=== PATIENT | female | born 1950 | race Caucasian/White ===

== ENCOUNTER → 2017-03-29 | Outpatient (REF) | payer MEDICARE, BC, OTHER ==
[~2017-03-29] MED LIST: BIOT50004 PO; LUTE25CA PO; MELO15TA4 PO; MULT1CHW39 PO; NATU400T PO; OLME5TAB PO; SIMV20TA2 PO; VALA1TAB PO; VESI5TAB PO; VITA20008 PO; [UNRECOGNIZED DRUG - CODE] IV; [UNRECOGNIZED DRUG - CODE] XX
[2017-03-29 12:48] LABS: PERCENT SATURATION 85.3 % (13.2-37.4)
== END ==
LOC: M LAB REF 12:00
PROVIDERS: ATTEND Internal Medicine Medical Oncology
DX: E83.110 Hereditary hemochromatosis (principal)

== ENCOUNTER → 2017-04-06 | Outpatient (CLI) | payer MEDICARE, BC, OTHER ==
[~2017-04-06] VITALS: Ht 160 cm; Wt 90.7 kg
[~2017-04-06] MED LIST changes: +LIDOCAINE 2% INJ 100 MG/5 ML SDV (FOR ANES.) As Ordered ONE; +NS 1,000 ML IV ONE; +PROPOFOL 200 MG/20 ML VIAL As Ordered ONE
--- NOTE | 2017-04-06 11:19 | ROOR ---
Patient Name: Sharonda Muhammad Procedure Date: 04/06/2017 11:01 AM Date of : 1950 Age: 66 Room: [facility] Gender: Female Note Status: Finalized Procedure: Colonoscopy to Cecum Indications: Screening for colorectal malignant neoplasm, Last colonoscopy: 2006 Providers: Morris Murcia MD Referring MD: KEYSHA COLON MD Requesting Provider: Medicines: Monitored Anesthesia Care Complications: No immediate complications. Procedure: Pre-Anesthesia Assessment: - The heart rate, respiratory rate, oxygen saturations, blood pressure, adequacy of pulmonary ventilation, and response to care were monitored throughout the procedure. The Colonoscope was introduced through the anus and advanced to the cecum, identified by appendiceal orifice and ileocecal valve. The colonoscopy was performed without difficulty. The patient tolerated the procedure well. The quality of the bowel preparation was excellent. Findings: The perianal and digital rectal examinations were normal. Non-bleeding internal hemorrhoids were found during retroflexion. The hemorrhoids were small and Grade I (internal hemorrhoids that do not prolapse). Multiple small and large-mouthed diverticula were found in the recto-sigmoid colon, sigmoid colon and descending colon. The exam was otherwise without abnormality on direct and retroflexion views. Impression: - Non-bleeding internal hemorrhoids. - Diverticulosis in the recto-sigmoid colon, in the sigmoid colon and in the descending colon. - The examination was otherwise normal on direct and retroflexion views. - No specimens collected. - The exam was otherwise normal to the cecum. Recommendation: - Patient has a contact number available for emergencies. The signs and symptoms of potential delayed complications were discussed with the patient. Return to normal activities tomorrow. Written discharge instructions were provided to the patient. - High fiber diet. - Discharge patient to home. - Continue present medications. - Repeat colonoscopy in 10 years for screening purposes. - Return to referring physician. - The findings and recommendations were discussed with the patient's family. Morris Murcia MD Morris Murcia MD 04/06/2017 11:18:51 AM This report has been signed electronically. Number of Addenda: 0 Note Initiated On: 04/06/2017 11:01 AM Estimated Blood Loss: Estimated blood loss: none.
[2017-04-06 11:41] VITALS: BP 183/93
== END ==
LOC: M OPP 09:49
PROVIDERS: ATTEND Internal Medicine Gastroenterology
DX: Z12.11 Encounter for screening for malignant neoplasm of colon (principal); Z80.0 Family history of malignant neoplasm of digestive organs; K64.0 First degree hemorrhoids; K57.30 Diverticulosis of large intestine without perforation or abscess without bleeding; R94.5 Abnormal results of liver function studies; E83.110 Hereditary hemochromatosis; Z96.652 Presence of left artificial knee joint; K59.00 Constipation, unspecified; I10 Essential (primary) hypertension; E78.00 Pure hypercholesterolemia, unspecified; Z79.899 Other long term (current) drug therapy; Z88.8 Allergy status to other drugs, medicaments and biological substances

== ENCOUNTER → 2017-04-20 | Outpatient (REF) | payer MEDICARE, BC, OTHER ==
[~2017-04-20] MED LIST changes: -LIDOCAINE 2% INJ 100 MG/5 ML SDV (FOR ANES.) As Ordered ONE; -NS 1,000 ML IV ONE; -PROPOFOL 200 MG/20 ML VIAL As Ordered ONE
[2017-04-20 12:57] LABS: PERCENT SATURATION 86.4 % (13.2-37.4)
== END ==
LOC: M LAB REF 12:22
PROVIDERS: ATTEND Internal Medicine Medical Oncology
DX: E83.110 Hereditary hemochromatosis (principal)

== ENCOUNTER → 2017-06-27 | Outpatient (REF) | payer MEDICARE, BC, OTHER ==
[~2017-06-27] MED LIST changes: -VALA1TAB PO; +VALA1TAB2 PO; -VESI5TAB PO; +VESI5TAB2 PO
== END ==
LOC: M LAB REF 17:39
PROVIDERS: ATTEND Internal Medicine Medical Oncology
DX: E83.110 Hereditary hemochromatosis (principal)

== ENCOUNTER → 2017-08-22 | Outpatient (REF) | payer MEDICARE, BC, OTHER | LOC: M LAB REF 16:30 | PROVIDERS: ATTEND Internal Medicine Medical Oncology | DX: E83.110 Hereditary hemochromatosis (principal) ==

== ENCOUNTER → 2017-10-14 | Outpatient (REF) | payer MEDICARE, BC, OTHER ==
[2017-10-14 13:39] LABS: PERCENT SATURATION 64.7 % (13.2-45.0)
== END ==
LOC: M LAB REF 13:03
PROVIDERS: ATTEND Internal Medicine Medical Oncology
DX: E83.110 Hereditary hemochromatosis (principal)

== ENCOUNTER → 2017-12-08 | Outpatient (REF) | payer MEDICARE, BC, OTHER ==
[2017-12-08 20:44] LABS: FERRITIN 67 NG/ML (8-252); IRON (FE) 112 UG/DL (50-170); PERCENT SATURATION 42.1 % (13.2-45.0); TOTAL IRON BINDING CAPACITY 266 UG/DL (250-450)
== END ==
LOC: M LAB REF 18:14
DX: E83.110 Hereditary hemochromatosis (principal)
CPT/HCPCS: 83550

== ENCOUNTER → 2018-01-06 | Outpatient (CLI) | payer MEDICARE, BC, OTHER | LOC: M CARPUL 08:22 | DX: E83.119 Hemochromatosis, unspecified (principal) | CPT/HCPCS: 93306 ==

== ENCOUNTER → 2018-01-18 | Outpatient (CLI) | payer MEDICARE, BC, OTHER | LOC: M SLEEP HO 10:50 | DX: R40.0 Somnolence (principal) | CPT/HCPCS: G0399 ==

== ENCOUNTER → 2018-01-30 | Outpatient (REF) | payer MEDICARE, BC, OTHER ==
[2018-01-30 14:34] LABS: FERRITIN 49 NG/ML (8-252); IRON (FE) 119 UG/DL (50-170); TOTAL IRON BINDING CAPACITY 238 UG/DL (250-450)
== END ==
LOC: M LAB REF 13:38
DX: E83.110 Hereditary hemochromatosis (principal)
CPT/HCPCS: 83550

== ENCOUNTER → 2018-03-03 | Outpatient (REF) | payer MEDICARE, BC, OTHER | LOC: M LAB REF 13:37 | DX: D34 Benign neoplasm of thyroid gland (principal); E04.2 Nontoxic multinodular goiter; E83.110 Hereditary hemochromatosis | CPT/HCPCS: 83550 ==

== ENCOUNTER → 2018-03-03 | Outpatient (REF) | payer MEDICARE, BC, OTHER ==
[2018-03-03 14:19] LABS: FERRITIN 55 NG/ML (8-252); IRON (FE) 129 UG/DL (50-170); PERCENT SATURATION 49.4 % (13.2-45.0); TOTAL IRON BINDING CAPACITY 261 UG/DL (250-450)
== END ==
LOC: M LAB REF 13:08
DX: E83.110 Hereditary hemochromatosis (principal)

== ENCOUNTER → 2018-06-07 | Outpatient (REF) | payer MEDICARE, BC, OTHER ==
[2018-06-07 14:18] LABS: FERRITIN 33 NG/ML (8-252); IRON (FE) 118 UG/DL (50-170); PERCENT SATURATION 43.5 % (13.2-45.0); TOTAL IRON BINDING CAPACITY 271 UG/DL (250-450)
== END ==
LOC: M LAB REF 13:47
DX: D50.9 Iron deficiency anemia, unspecified (principal)
CPT/HCPCS: 83550

== ENCOUNTER → 2019-12-28 | Outpatient (REF) | payer MEDICARE, BC, OTHER ==
[~2019-12-28] MED LIST changes: +BUPR1TAB53 PO; +CIDA500T2 PO; +GABA-843 PO; +MELO15TA28 PO; -MELO15TA4 PO; -MULT1CHW39 PO; +MULT200T7 PO; +PANT40TA3 PO; -SIMV20TA2 PO; +SIMV20TA22 PO; -VALA1TAB2 PO; +VALA1TAB5 PO
== END ==
LOC: M LAB REF 13:38
PROVIDERS: ATTEND Dermatology
DX: D04.39 Carcinoma in situ of skin of other parts of face (principal)
CPT/HCPCS: 11102; 88305; G0463

== ENCOUNTER → 2020-02-18 | Outpatient (CLI) | payer MEDICARE, BC, OTHER ==
[~2020-02-18] MED LIST changes: +AMIT10TA PO; +HYDR25TAB PO; +ISOVUE-370 76% 100ML VIAL (Q9967) As Ordered ONE; +VALA500T5 PO
--- NOTE | 2020-02-18 09:38 | REP ---
Clinical: Followup lung nodule. Technique: Axial contrast enhanced images from the thoracic inlet to the upper abdomen with coronal and sagittal re-formations using 75 ml Isovue 370 intravenous contrast material. Comparison: 06/09/2019, 06/26/2018. Findings: The bilateral lung pretty are relatively well aerated and scattered stable noncalcified pulmonary nodules are again identified and unchanged including two right-sided nodules measuring up to approximately 8 mm (images 36, 48). No consolidation. No effusion. No pneumothorax. Tracheobronchial tree is patent. Mediastinum demonstrates stable atherosclerotic changes. No aortic aneurysm or dissection. No cardiomegaly or pericardial effusion. No axillary, hilar, or mediastinal adenopathy. Heterogeneous enlarged left thyroid gland unchanged. Skeletal structures are intact. Limited upper abdomen demonstrates fatty infiltration of the liver. Impression: 1. Stable noncalcified pulmonary nodules. 2. No acute mediastinal or pleuroparenchymal process. Electronically Signed by Aldair Negrete MD 02/18/2020 09:29 A
--- NOTE | 2020-02-18 09:40 | REP ---
Clinical: History of hemochromatosis and hepatosteatosis. Technique: Real time vega scale ultrasound examination using curved array transducer. Findings: The liver is diffusely increased echogenicity and consistent with the given history of hepatosteatosis and/or hepatocellular disease. No hepatomegaly or focal hepatic lesion identified. The spleen is upper limits of normal in size and measures 10.6 x 9.9 x 4.9 cm without focal splenic lesion identified. Pancreas is normal. The gallbladder is unremarkable and without gallstones, wall thickening, or pericholecystic fluid. No biliary ductal dilatation is appreciated and the common bile duct measures 6 mm diameter. The bilateral kidneys are normal in reniform shape without hydronephrosis. Right kidney measures 10.1 x 4.4 x 4.2 cm. Left kidney measures 10.9 x 4.7 x 5.3 cm. Abdominal aorta is normal and measures 1.9 cm maximal diameter. No ascites. Impression: 1. Findings consistent with hepatic steatosis and/or hepatocellular disease. No focal hepatic lesion identified. 2. Spleen is upper limits of normal in size without focal splenic lesion identified. Electronically Signed by Aldair Negrete MD 02/18/2020 09:32 A
== END ==
LOC: M RAD 08:26
PROVIDERS: ATTEND Internal Medicine Hematology & Oncology
DX: E83.110 Hereditary hemochromatosis (principal)
CPT/HCPCS: 71260; 76700; Q9967

== ENCOUNTER → 2020-03-19 | Outpatient (REF) | payer MEDICARE, BC, OTHER ==
[~2020-03-19] MED LIST changes: -ISOVUE-370 76% 100ML VIAL (Q9967) As Ordered ONE
== END ==
LOC: M LAB REF 09:26
PROVIDERS: ATTEND Dermatology
DX: L57.0 Actinic keratosis (principal)

== ENCOUNTER → 2020-07-07 | Outpatient (CLI) | payer MEDICARE, BC, OTHER ==
[~2020-07-07] MED LIST changes: +ISOVUE-370 76% 100ML VIAL As Ordered ONE; +PANT40TA29 PO; -PANT40TA3 PO; +SERT25TA85 PO
--- NOTE | 2020-08-21 10:23 | REP ---
RIGHT UPPER QUADRANT ULTRASOUND: HISTORY: High risk for liver cancer. FINDINGS: Real time sonographic evaluation of the right upper quadrant is performed. The study is somewhat limited due to patient body habitus and bowel gas. The gallbladder demonstrates no evidence of intraluminal sludge or calculi, wall thickening or pericholecystic fluid. There is no intrahepatic or extrahepatic biliary dilation, the common bile duct measuring 5 mm. The liver demonstrates diffuse hyperechoic texture heterogeneously , compatible with diffuse fibrofatty infiltration. No gross liver mass is seen. No gross pancreatic mass is seen. The right kidney demonstrates no hydronephrosis and normal size at 10.1 cm in length. IMPRESSION: Somewhat limited examination due to patient body habitus and bowel gas. There is diffuse fibrofatty infiltration of the liver. No gross liver mass is seen. MTDD
--- NOTE | 2020-08-21 10:24 | REP ---
CT STUDY CHEST WITH IV CONTRAST HISTORY: Hereditary hemochromatosis. Pulmonary nodules. COMPARISON: CT study 02/18/2020. CT CONTRAST DOSE: 75 mL of intravenous Isovue-[address] FINDINGS: There is a pleural-based 7-mm stable noncalcified pulmonary nodule in the right lower lobe adjacent to the minor fissure peripherally. This is unchanged from 02/18/2020 and by report, unchanged from earlier CT studies. There is also a pleural-based benign appearing 7-mm nodule in the right middle lobe adjacent to the minor fissure also unchanged from prior CT studies. No new pulmonary nodule is appreciated. No infiltrate or effusion is seen. There are accessory splenules in the left upper quadrant, which are unchanged as well. There is fatty infiltration of the liver with area of fat-sparing near the gallbladder. No adrenal lesion is seen. No hepatic mass lesion is observed. There is left coronary artery vascular calcification. No hilar or mediastinal mass or adenopathy is observed. There is heterogeneous enlargement of the left lobe of the thyroid gland unchanged from the 02/18/2020 study. IMPRESSION: Stable pulmonary nodules. Left thyroid goiter. Fatty infiltration of the liver. Left coronary artery MTDD
== END ==
LOC: M RAD 08:00
PROVIDERS: ATTEND Internal Medicine Hematology & Oncology
DX: E83.119 Hemochromatosis, unspecified (principal); R91.8 Other nonspecific abnormal finding of lung field; K76.0 Fatty (change of) liver, not elsewhere classified
CPT/HCPCS: 71260; 76705; Q9967

== ENCOUNTER → 2020-07-23 | Outpatient (REF) | payer MEDICARE, BC, OTHER ==
[~2020-07-23] MED LIST changes: -ISOVUE-370 76% 100ML VIAL As Ordered ONE
== END ==
LOC: M LAB REF 17:58
PROVIDERS: ATTEND Physician Assistant Medical
DX: R30.0 Dysuria (principal)

== ENCOUNTER → 2020-09-26 | Outpatient (CLI) | payer MEDICARE, BC, OTHER | LOC: M LABSMTC 12:42 | PROVIDERS: ATTEND Pediatrics | DX: Z20.828 Contact with and (suspected) exposure to other viral communicable diseases (principal) | CPT/HCPCS: C9803; U0003 ==

== ENCOUNTER → 2020-11-11 | Outpatient (CLI) | payer MEDICARE, BC, OTHER ==
[2020-11-11 06:58] LABS: BASO % 0.6 % (0.0-1.0); EOS # 0.2 10^3/uL (0.0-0.5); EOS % 2.4 % (0.0-3.0); HEMATOCRIT 40.7 % (36.0-47.0); HEMOGLOBIN 13.2 g/dl (12.0-15.5); LYMPH % 32.3 % (24.0-44.0); MEAN CORPUSCULAR HEMOGLOBIN 29.3 pg (27.0-33.0); MEAN CORPUSCULAR HGB CONC 32.4 g/dl (32.0-36.5); MEAN CORPUSCULAR VOLUME 90.4 fl (80.0-96.0); MONO # 0.6 10^3/uL (0.0-0.8); MONO % 9.7 % (0.0-5.0); NEUTROPHILS # 3.4 10^3/uL (1.5-8.5); NEUTROPHILS % 54.5 % (36.0-66.0); PLATELET COUNT, AUTOMATED 257 10^3/uL (150-450); WHITE BLOOD COUNT 6.3 10^3/uL (4.0-10.0)
[2020-11-11 07:22] LABS: ERYTHROCYTE SEDIMENTATION RATE 17 mm/hr (0-30)
[2020-11-11 07:31] LABS: ALBUMIN 3.7 GM/DL (3.2-5.2); ALT/SGPT 22 U/L (12-78); BILIRUBIN,DIRECT 0.1 MG/DL (0.0-0.2); BILIRUBIN,TOTAL 0.5 MG/DL (0.2-1.0); BLOOD UREA NITROGEN 16 MG/DL (7-18); C REACTIVE PROTEIN QUANTITATIV 0.57 MG/DL (0.00-0.30); CALCIUM LEVEL 8.9 MG/DL (8.8-10.2); CARBON DIOXIDE LEVEL 30 MEQ/L (21-32); CHLORIDE LEVEL 104 MEQ/L (98-107); CREATININE FOR GFR 0.93 MG/DL (0.55-1.30); FREE T4 0.96 NG/DL (0.76-1.46); GLOMERULAR FILTRATION RATE > 60.0 (>39); GLUCOSE, FASTING 92 MG/DL (70-100); IRON (FE) 97 UG/DL (50-170); MAGNESIUM LEVEL 2.6 MG/DL (1.8-2.4); PERCENT SATURATION 34.6 % (13.2-45.0); RHEUMATOID FACTOR QUANT < 10.0 IU/ML (<15.0); SODIUM LEVEL 140 MEQ/L (136-145); TOTAL IRON BINDING CAPACITY 280 UG/DL (250-450); TOTAL PROTEIN 6.8 GM/DL (6.4-8.2)
[2020-11-11 07:35] LABS: HEMOGLOBIN A1c 5.5 %
[2020-11-11 09:39] LABS: TOTAL 25(OH) VITAMIN D 38.8 NG/ML (30.0-100.0)
[2020-11-11 09:40] LABS: CORTISOL AM 10.7 UG/DL (4.3-22.4); FOLATE > 24.0 NG/ML
[2020-11-11 11:46] LABS: VITAMIN B12 LEVEL 464 PG/ML
== END ==
LOC: M LAB 06:00
PROVIDERS: ATTEND Nurse Practitioner Family
DX: R53.83 Other fatigue (principal); Z79.899 Other long term (current) drug therapy

== ENCOUNTER → 2021-06-23 | Outpatient (REF) | payer MEDICARE, BC, OTHER ==
[~2021-06-23] MED LIST changes: -AMIT10TA PO; +AMIT10TA7 PO; +D31000TA2 PO; +DIMELIQ PO; +ESSETAB4 PO; +GABA-282 PO; -GABA-843 PO; +HYDR-3490 PO; -HYDR25TAB PO; +L-LY500T9 PO; +MILK500C PO
== END ==
LOC: M LAB REF 14:46
PROVIDERS: ATTEND Physician Assistant
DX: L82.1 Other seborrheic keratosis (principal)
CPT/HCPCS: 11102; 88305; G0463

== ENCOUNTER → 2021-06-30 | Outpatient (CLI) | payer MEDICARE, BC, OTHER ==
[~2021-06-30] MED LIST changes: +REME15TA2 PO
== END ==
LOC: M WHC 11:12
PROVIDERS: ATTEND Family Medicine
DX: M81.0 Age-related osteoporosis without current pathological fracture (principal)

== ENCOUNTER → 2021-11-24 | Outpatient (REF) | payer MEDICARE, BC, OTHER | LOC: M LAB REF 08:27 | PROVIDERS: ATTEND Physician Assistant | DX: D04.39 Carcinoma in situ of skin of other parts of face (principal) ==

== ENCOUNTER → 2022-01-27 | Outpatient (CLI) | payer MEDICARE, BC, OTHER ==
[~2022-01-27] MED LIST changes: -D31000TA2 PO; +L-LY500T23 PO; -L-LY500T9 PO; +VITA100093 PO
== END ==
LOC: M WHC 06:43
PROVIDERS: ATTEND Family Medicine
DX: Z12.31 Encounter for screening mammogram for malignant neoplasm of breast (principal)

== ENCOUNTER → 2022-04-29 | Outpatient (CLI) | payer MEDICARE, BC, OTHER | LOC: M WHC 07:09 | PROVIDERS: ATTEND Internal Medicine Medical Oncology | DX: E83.110 Hereditary hemochromatosis (principal) ==

== ENCOUNTER → 2023-01-24 | Outpatient (CLI) | payer MEDICARE, BC, OTHER ==
[~2023-01-24] MED LIST changes: -OLME5TAB PO; +OLME5TAB24 PO
== END ==
LOC: M PLAIMG 12:14
PROVIDERS: ATTEND Nurse Practitioner Family
DX: R05.1 Acute cough (principal)

== ENCOUNTER 2023-02-16 11:21 | Emergency (ER) | payer MEDICARE, BC, OTHER ==
[~2023-02-16] VITALS: Ht 157.5 cm; Wt 88.0 kg
[2023-02-16 12:25] LABS: BASO % 0.5 % (0.0-1.0); EOS # 0.2 10^3/uL (0.0-0.5); EOS % 3.2 % (0.0-3.0); HEMATOCRIT 40.8 % (36.0-47.0); HEMOGLOBIN 13.9 g/dl (12.0-15.5); LYMPH % 30.9 % (24.0-44.0); MEAN CORPUSCULAR HEMOGLOBIN 32.6 pg (27.0-33.0); MEAN CORPUSCULAR HGB CONC 34.1 g/dl (32.0-36.5); MEAN CORPUSCULAR VOLUME 95.8 fl (80.0-96.0); MONO # 0.6 10^3/uL (0.0-0.8); MONO % 9.2 % (2.0-8.0); NEUTROPHILS # 3.6 10^3/uL (1.5-8.5); NEUTROPHILS % 55.7 % (36.0-66.0); PLATELET COUNT, AUTOMATED 178 10^3/uL (150-450); RED BLOOD COUNT 4.26 10^6/uL (4.00-5.40); WHITE BLOOD COUNT 6.5 10^3/uL (4.0-10.0)
[2023-02-16 12:36] LABS: INR 0.95; PARTIAL THROMBOPLASTIN TIME 25.9 SECONDS (24.8-34.2); PROTHROMBIN TIME 12.9 SECONDS (12.5-14.5)
[2023-02-16 12:56] LABS: BLOOD UREA NITROGEN 17 MG/DL (9-23); CALCIUM LEVEL 9.2 MG/DL (8.3-10.6); CARBON DIOXIDE LEVEL 34 MMOL/L (20-31); CHLORIDE LEVEL 98 MMOL/L (98-107); CREATININE FOR GFR 0.78 MG/DL (0.55-1.30); GLOMERULAR FILTRATION RATE > 60.0 (>39); GLUCOSE, FASTING 83 MG/DL (74-106); POTASSIUM SERUM 3.7 MMOL/L (3.5-5.1); SODIUM LEVEL 138 MMOL/L (136-145)
[2023-02-16 13:09] LABS: RSV AMPLIFICATION NEGATIVE (NEGATIVE)
[2023-02-16 13:14] LABS: CK-MB VALUE MASS < 1.0 NG/ML (<3.6); LIPASE 59 U/L (12-53)
[2023-02-16 13:17] LABS: ALBUMIN 3.8 G/DL (3.2-5.2); ALKALINE PHOSPHATASE 75 U/L (46-116); ALT/SGPT 43 U/L (7.0-40); AST/SGOT 29 U/L (<34); BILIRUBIN,DIRECT 0.2 MG/DL (<0.4); BILIRUBIN,TOTAL 0.8 MG/DL (0.3-1.2); TOTAL PROTEIN 6.2 G/DL (5.7-8.2)
[2023-02-16 13:18] LABS: CPK CREATINE PHOSPHOKINASE 49 U/L (34-145); FREE T4 1.01 NG/DL (0.89-1.76); MB/CK RELATIVE INDEX 2.04 (< OR =4); THYROID STIMULATING HORMONE 0.955 uIU/ML (0.55-4.78)
[2023-02-16 13:49] LABS: CK-MB VALUE MASS < 1.0 NG/ML (<3.6)
[2023-02-16 13:51] LABS: CPK CREATINE PHOSPHOKINASE 49 U/L (34-145); MB/CK RELATIVE INDEX 2.04 (< OR =4)
[2023-02-16] MEDS ORDERED: ISOVUE-370 76% 100ML VIAL As Ordered ONE (14:37)
[2023-02-16 16:09] VITALS: BP 144/72
== END 2023-02-16 16:27 | disposition home or self-care (01) ==
LOC: M ED 11:21
DX: R07.9 Chest pain, unspecified (principal); I10 Essential (primary) hypertension; E04.1 Nontoxic single thyroid nodule; E78.5 Hyperlipidemia, unspecified; R51.9 Headache, unspecified; K21.9 Gastro-esophageal reflux disease without esophagitis; F32.A Depression, unspecified; Z88.8 Allergy status to other drugs, medicaments and biological substances; Z79.899 Other long term (current) drug therapy
CPT/HCPCS: 71045; 71275; 80047; 80048; 80076; 82550; 82553; 83690; 83880; 84439; 84443; 84484; 85025; 85610; 85730; 87631; 93005; 93041; 94760; 99285; Q9967

== ENCOUNTER → 2023-07-13 | Outpatient (CLI) | payer MEDICARE, BC, OTHER ==
[~2023-07-13] MED LIST changes: +ACET650T61 PO; +CIPR500T39 PO; +IBAN150T6 PO; +MELO7.5T35 PO; +METR-265 PO; +MIRT-84 PO; +MULT-90 PO; +ONE-TAB PO; -REME15TA2 PO; +[UNRECOGNIZED DRUG - OTHER] PO
== END ==
LOC: M WHC 07:41
PROVIDERS: ATTEND Family Medicine
DX: Z12.31 Encounter for screening mammogram for malignant neoplasm of breast (principal); Z13.820 Encounter for screening for osteoporosis; M85.852 Other specified disorders of bone density and structure, left thigh; M85.88 Other specified disorders of bone density and structure, other site

== ENCOUNTER 2023-07-29 17:30 | Emergency (ER) | payer MEDICARE, BC, OTHER ==
[~2023-07-29] VITALS: Ht 157.5 cm; Wt 85.9 kg
[~2023-07-29 17:30] MED LIST changes: -ACET650T61 PO; -CIPR500T39 PO; -IBAN150T6 PO; -MELO7.5T35 PO; -METR-265 PO; -MULT-90 PO; -ONE-TAB PO; -[UNRECOGNIZED DRUG - OTHER] PO
[2023-07-29 17:31] VITALS: BP 165/75; TEMP 99.4; O2SAT 96
[2023-07-29] MEDS ORDERED: MELO7.5T35 (18:01)
[2023-07-29] MEDS ORDERED: IBAN150T6 (18:01)
[2023-07-29 18:45] LABS: BASO % 0.2 % (0.0-1.0); EOS % 0.1 % (0.0-3.0); HEMOGLOBIN 13.1 g/dl (12.0-15.5); LYMPH # 1.3 10^3/uL (1.5-5.0); LYMPH % 7.8 % (24.0-44.0); MEAN CORPUSCULAR HEMOGLOBIN 32.6 pg (27.0-33.0); MEAN CORPUSCULAR HGB CONC 34.5 g/dl (32.0-36.5); MEAN CORPUSCULAR VOLUME 94.5 fl (80.0-96.0); MONO # 0.8 10^3/uL (0.0-0.8); MONO % 4.9 % (2.0-8.0); NEUTROPHILS # 14.6 10^3/uL (1.5-8.5); NEUTROPHILS % 85.9 % (36.0-66.0); PLATELET COUNT, AUTOMATED 236 10^3/uL (150-450); RED BLOOD COUNT 4.02 10^6/uL (4.00-5.40)
[2023-07-29 18:59] LABS: LIPASE 30 U/L (12-53)
[2023-07-29 19:01] LABS: ALBUMIN 3.3 G/DL (3.2-5.2); ALKALINE PHOSPHATASE 102 U/L (46-116); ALT/SGPT 25 U/L (7.0-40); AST/SGOT 20 U/L (<34); BILIRUBIN,DIRECT 0.6 MG/DL (<0.4); BILIRUBIN,TOTAL 1.6 MG/DL (0.3-1.2); BLOOD UREA NITROGEN 12 MG/DL (9-23); CALCIUM LEVEL 8.5 MG/DL (8.3-10.6); CARBON DIOXIDE LEVEL 28 MMOL/L (20-31); CHLORIDE LEVEL 99 MMOL/L (98-107); CREATININE FOR GFR 0.76 MG/DL (0.55-1.30); GLOMERULAR FILTRATION RATE > 60.0 (>39); GLUCOSE, FASTING 94 MG/DL (74-106); POTASSIUM SERUM 3.6 MMOL/L (3.5-5.1); SODIUM LEVEL 136 MMOL/L (136-145); TOTAL PROTEIN 6.5 G/DL (5.7-8.2)
== END 2023-07-29 21:41 | disposition left against medical advice (07) ==
LOC: M ED 17:30
DX: R10.9 Unspecified abdominal pain (principal); Z53.21 Procedure and treatment not carried out due to patient leaving prior to being seen by health care provider

== ENCOUNTER → 2023-08-02 | Outpatient (CLI) | payer MEDICARE, BC, OTHER ==
[~2023-08-02] MED LIST changes: +GASTROGRAFIN SOLUTION 30ML As Ordered ONE; +IBAN150T6; +ISOVUE-370 76% 100ML VIAL As Ordered ONE; +MELO7.5T35
== END ==
LOC: M RAD 12:26
PROVIDERS: ATTEND Registered Nurse
DX: R10.9 Unspecified abdominal pain (principal)
CPT/HCPCS: 74177; Q9963; Q9967

== ENCOUNTER 2023-08-09 12:57 | Inpatient (IN) | payer OTHER, MEDICARE, BC ==
[~2023-08-09] VITALS: Ht 157.5 cm; Wt 81.5 kg
[~2023-08-09 12:57] MED LIST changes: -GASTROGRAFIN SOLUTION 30ML As Ordered ONE; -IBAN150T6; +IBAN150T6 PO; -ISOVUE-370 76% 100ML VIAL As Ordered ONE; -MELO7.5T35; +MELO7.5T35 PO
[2023-08-09] MEDS ORDERED: METR-265 PO (13:29)
[2023-08-09] MEDS ORDERED: CIPR500T39 PO (13:29)
[2023-08-09] MEDS ORDERED: ONDANSETRON 4MG 2ML VIAL IV ONE (13:45)
[2023-08-09] MEDS ORDERED: NS 500 ML IV ONE (13:45)
[2023-08-09] MEDS ORDERED: MORPHINE 2 MG/ML 1ML VIAL IV ONE (14:15)
[2023-08-09] MEDS ORDERED: ACETAMINOPHEN 325 MG TAB PO ONE (14:15)
[2023-08-09] MEDS ORDERED: ISOVUE-370 76% 100ML VIAL As Ordered ONE (14:18)
[2023-08-09 14:23] LABS: BASO % 0.1 % (0.0-1.0); EOS % 0.1 % (0.0-3.0); HEMATOCRIT 37.4 % (36.0-47.0); HEMOGLOBIN 12.4 g/dl (12.0-15.5); LYMPH # 0.9 10^3/uL (1.5-5.0); LYMPH % 5.2 % (24.0-44.0); MEAN CORPUSCULAR HEMOGLOBIN 32.2 pg (27.0-33.0); MEAN CORPUSCULAR HGB CONC 33.2 g/dl (32.0-36.5); MEAN CORPUSCULAR VOLUME 97.1 fl (80.0-96.0); MONO # 1.2 10^3/uL (0.0-0.8); MONO % 6.9 % (2.0-8.0); NEUTROPHILS # 15.6 10^3/uL (1.5-8.5); NEUTROPHILS % 86.6 % (36.0-66.0); PLATELET COUNT, AUTOMATED 362 10^3/uL (150-450); RED BLOOD COUNT 3.85 10^6/uL (4.00-5.40)
[2023-08-09 14:49] LABS: ALBUMIN 2.8 G/DL (3.2-5.2); BILIRUBIN,DIRECT 0.2 MG/DL (<0.4); BILIRUBIN,TOTAL 0.6 MG/DL (0.3-1.2); TOTAL PROTEIN 6.3 G/DL (5.7-8.2)
[2023-08-09 14:58] LABS: RSV AMPLIFICATION NEGATIVE (NEGATIVE)
[2023-08-09] MEDS ORDERED: PIPERACILLIN/TAZOBACTAM SOD 3.375 GM in D5W MINI-BAG PLUS 50 ML IV ONE (15:05)
[2023-08-09] MEDS ORDERED: ONDANSETRON 4MG 2ML VIAL IV PRN (17:05)
[2023-08-09 17:36] VITALS: BP 135/71; TEMP 97; O2SAT 98
[2023-08-09] MEDS: LR 1,000 ML IV SCH (18:03)
[2023-08-09] MEDS ORDERED: MED REC IN PROGRESS XX SCH (19:10)
[2023-08-09] MEDS ORDERED: [UNRECOGNIZED DRUG - OTHER] PO (20:09)
[2023-08-09] MEDS ORDERED: ACET650T61 PO (20:12)
[2023-08-09] MEDS ORDERED: ONE-TAB PO (20:27)
[2023-08-09] MEDS ORDERED: MULT-90 PO (20:27)
[2023-08-09 20:52] VITALS: BP 129/72; TEMP 96.6; O2SAT 96
[2023-08-09 21:36] VITALS: BP 139/74
[2023-08-09] MEDS: PIPERACILLIN/TAZOBACTAM SOD 4.5 GM in D5W MINI-BAG PLUS 50 ML IV SCH (21:36)
[2023-08-09] MEDS ORDERED: HOME MED LIST COMPLETE! XX SCH (22:15)
[2023-08-09] MEDS: MORPHINE 4 MG/ML 1ML VIAL IV PRN (23:39)
[2023-08-10] MEDS: PIPERACILLIN/TAZOBACTAM SOD 4.5 GM in D5W MINI-BAG PLUS 50 ML IV SCH ×4 (04:10→21:03)
[2023-08-10 04:36] VITALS: BP 128/73; TEMP 97.7; O2SAT 94
[2023-08-10] MEDS: MORPHINE 4 MG/ML 1ML VIAL IV PRN (05:40)
[2023-08-10 06:09] LABS: HEMATOCRIT 35.7 % (36.0-47.0); HEMOGLOBIN 11.7 g/dl (12.0-15.5); MEAN CORPUSCULAR HEMOGLOBIN 31.5 pg (27.0-33.0); MEAN CORPUSCULAR HGB CONC 32.8 g/dl (32.0-36.5); PLATELET COUNT, AUTOMATED 356 10^3/uL (150-450); RED BLOOD COUNT 3.72 10^6/uL (4.00-5.40); WHITE BLOOD COUNT 13.9 10^3/uL (4.0-10.0)
[2023-08-10] MEDS: LR 1,000 ML IV SCH (06:25)
[2023-08-10 06:37] LABS: BLOOD UREA NITROGEN 8 MG/DL (9-23); CARBON DIOXIDE LEVEL 27 MMOL/L (20-31); CHLORIDE LEVEL 104 MMOL/L (98-107); CREATININE FOR GFR 0.64 MG/DL (0.55-1.30); GLOMERULAR FILTRATION RATE > 60.0 (>39); GLUCOSE, FASTING 93 MG/DL (74-106); POTASSIUM SERUM 3.5 MMOL/L (3.5-5.1); SODIUM LEVEL 140 MMOL/L (136-145)
[2023-08-10 06:44] LABS: PROCALCITONIN 0.25 ng/ml
[2023-08-10] MEDS ORDERED: ACETAMINOPHEN 650MG ER TAB (TYLENOL ARTHRITIS) PO PRN (06:55)
[2023-08-10] MEDS: VITAMIN D 1,000 INTERNATIONAL UNITS TABLET PO SCH ×2 (09:20→21:03)
[2023-08-10] MEDS: PANTOPRAZOLE 40MG TAB (PROTONIX) PO SCH (09:20)
[2023-08-10] MEDS: SIMVASTATIN 20 MG TAB PO SCH (09:20)
[2023-08-10] MEDS: ACETAMINOPHEN TAB 650MG DOSE (2X325MG) PO PRN ×2 (09:24→18:17)
[2023-08-10] MEDS: ENOXAPARIN 40MG/0.4ML SYRINGE (J1650 PER 10MG) SC SCH (11:31)
[2023-08-10 14:00] VITALS: BP 126/80; TEMP 96.8; O2SAT 95
[2023-08-10 21:50] VITALS: BP 121/59; TEMP 97.5; O2SAT 92
[2023-08-11 04:00] VITALS: BP 159/83; TEMP 98.1; O2SAT 95
[2023-08-11] MEDS: MORPHINE 4 MG/ML 1ML VIAL IV PRN ×2 (04:00→20:29)
[2023-08-11] MEDS: PIPERACILLIN/TAZOBACTAM SOD 4.5 GM in D5W MINI-BAG PLUS 50 ML IV SCH ×4 (04:00→20:15)
[2023-08-11] MEDS: LR 1,000 ML IV SCH ×3 (04:00→22:25)
[2023-08-11 07:09] LABS: HEMATOCRIT 35.4 % (36.0-47.0); HEMOGLOBIN 11.7 g/dl (12.0-15.5); MEAN CORPUSCULAR HEMOGLOBIN 32.3 pg (27.0-33.0); MEAN CORPUSCULAR HGB CONC 33.1 g/dl (32.0-36.5); MEAN CORPUSCULAR VOLUME 97.8 fl (80.0-96.0); PLATELET COUNT, AUTOMATED 367 10^3/uL (150-450); RED BLOOD COUNT 3.62 10^6/uL (4.00-5.40); WHITE BLOOD COUNT 11.1 10^3/uL (4.0-10.0)
[2023-08-11 07:46] LABS: BLOOD UREA NITROGEN 8 MG/DL (9-23); CALCIUM LEVEL 8.2 MG/DL (8.3-10.6); CARBON DIOXIDE LEVEL 30 MMOL/L (20-31); CHLORIDE LEVEL 102 MMOL/L (98-107); CREATININE FOR GFR 0.75 MG/DL (0.55-1.30); GLOMERULAR FILTRATION RATE > 60.0 (>39); GLUCOSE, FASTING 91 MG/DL (74-106); MAGNESIUM LEVEL 1.9 MG/DL (1.8-2.4); POTASSIUM SERUM 3.4 MMOL/L (3.5-5.1); SODIUM LEVEL 141 MMOL/L (136-145)
[2023-08-11 07:50] LABS: PROCALCITONIN 0.17 ng/ml
[2023-08-11] MEDS: SIMVASTATIN 20 MG TAB PO SCH (09:57)
[2023-08-11] MEDS: VITAMIN D 1,000 INTERNATIONAL UNITS TABLET PO SCH ×2 (09:57→20:15)
[2023-08-11] MEDS: PANTOPRAZOLE 40MG TAB (PROTONIX) PO SCH (09:57)
[2023-08-11] MEDS: ENOXAPARIN 40MG/0.4ML SYRINGE (J1650 PER 10MG) SC SCH (09:58)
[2023-08-11] MEDS: ACETAMINOPHEN TAB 650MG DOSE (2X325MG) PO PRN (13:31)
[2023-08-11 14:00] VITALS: BP 126/65; TEMP 97.9; O2SAT 95
[2023-08-11 19:57] VITALS: BP 153/75; TEMP 98.8; O2SAT 95
[2023-08-12] MEDS: PIPERACILLIN/TAZOBACTAM SOD 4.5 GM in D5W MINI-BAG PLUS 50 ML IV SCH ×2 (03:07→10:19)
[2023-08-12 05:09] VITALS: BP 126/69; TEMP 97.3; O2SAT 93
[2023-08-12] MEDS ORDERED: MOXIFLOXACIN 400 MG TAB PO SCH (06:00)
[2023-08-12 06:56] LABS: HEMATOCRIT 34.3 % (36.0-47.0); HEMOGLOBIN 11.5 g/dl (12.0-15.5); MEAN CORPUSCULAR HGB CONC 33.5 g/dl (32.0-36.5); MEAN CORPUSCULAR VOLUME 95.5 fl (80.0-96.0); PLATELET COUNT, AUTOMATED 380 10^3/uL (150-450); RED BLOOD COUNT 3.59 10^6/uL (4.00-5.40); WHITE BLOOD COUNT 11.8 10^3/uL (4.0-10.0)
[2023-08-12 07:29] LABS: BLOOD UREA NITROGEN < 5 MG/DL (9-23); CALCIUM LEVEL 8.5 MG/DL (8.3-10.6); CARBON DIOXIDE LEVEL 32 MMOL/L (20-31); CHLORIDE LEVEL 101 MMOL/L (98-107); GLOMERULAR FILTRATION RATE > 60.0 (>39); GLUCOSE, FASTING 96 MG/DL (74-106); MAGNESIUM LEVEL 1.9 MG/DL (1.8-2.4); POTASSIUM SERUM 3.1 MMOL/L (3.5-5.1); SODIUM LEVEL 139 MMOL/L (136-145)
[2023-08-12] MEDS: PANTOPRAZOLE 40MG TAB (PROTONIX) PO SCH (07:58)
[2023-08-12] MEDS: VITAMIN D 1,000 INTERNATIONAL UNITS TABLET PO SCH ×2 (07:58→20:25)
[2023-08-12] MEDS: GASTROGRAFIN SOLUTION 30ML PO SCH ×2 (07:59→08:28)
[2023-08-12] MEDS: SIMVASTATIN 20 MG TAB PO SCH (07:59)
[2023-08-12] MEDS: ENOXAPARIN 40MG/0.4ML SYRINGE (J1650 PER 10MG) SC SCH (07:59)
[2023-08-12] MEDS ORDERED: KCL 10MEQ/100ML SWI (KRUN) 10 MEQ in IV 1 EA IV SCH (09:00)
[2023-08-12] MEDS ORDERED: ISOVUE-370 76% 100ML VIAL As Ordered ONE (09:48)
[2023-08-12] MEDS: LR 1,000 ML IV SCH (11:45)
[2023-08-12] MEDS ORDERED: POTASSIUM CHLORIDE 10MEQ SR TABLET PO ONE ×2 (12:00→20:00)
[2023-08-12 14:00] VITALS: TEMP 96.8; O2SAT 96
[2023-08-12] MEDS: metroNIDAZOLE (FLAGYL) 500MG TABLET PO SCH ×3 (14:35→23:54)
[2023-08-12] MEDS: CEFDINIR 300 MG CAP (OMNICEF) PO SCH (20:25)
[2023-08-12] MEDS: ACETAMINOPHEN TAB 650MG DOSE (2X325MG) PO PRN (20:26)
[2023-08-12 20:45] VITALS: BP 143/77; TEMP 97.7; O2SAT 95
[2023-08-13 04:55] VITALS: BP 110/60; TEMP 97.7; O2SAT 95
[2023-08-13] MEDS: metroNIDAZOLE (FLAGYL) 500MG TABLET PO SCH (05:41)
[2023-08-13 06:36] LABS: BASO # 0.1 10^3/uL (0.0-0.2); EOS # 0.2 10^3/uL (0.0-0.5); EOS % 2.8 % (0.0-3.0); HEMATOCRIT 36.1 % (36.0-47.0); HEMOGLOBIN 12.1 g/dl (12.0-15.5); LYMPH # 1.9 10^3/uL (1.5-5.0); LYMPH % 32.6 % (24.0-44.0); MEAN CORPUSCULAR HGB CONC 33.5 g/dl (32.0-36.5); MEAN CORPUSCULAR VOLUME 95.5 fl (80.0-96.0); MONO # 0.7 10^3/uL (0.0-0.8); MONO % 12.3 % (2.0-8.0); NEUTROPHILS # 2.8 10^3/uL (1.5-8.5); NEUTROPHILS % 48.2 % (36.0-66.0); PLATELET COUNT, AUTOMATED 393 10^3/uL (150-450); RED BLOOD COUNT 3.78 10^6/uL (4.00-5.40); WHITE BLOOD COUNT 5.8 10^3/uL (4.0-10.0)
[2023-08-13 07:10] LABS: BLOOD UREA NITROGEN 9 MG/DL (9-23); CALCIUM LEVEL 8.8 MG/DL (8.3-10.6); CARBON DIOXIDE LEVEL 32 MMOL/L (20-31); CHLORIDE LEVEL 103 MMOL/L (98-107); CREATININE FOR GFR 0.65 MG/DL (0.55-1.30); GLOMERULAR FILTRATION RATE > 60.0 (>39); GLUCOSE, FASTING 97 MG/DL (74-106); SODIUM LEVEL 141 MMOL/L (136-145)
[2023-08-13] MEDS: SIMVASTATIN 20 MG TAB PO SCH (08:10)
[2023-08-13] MEDS: CEFDINIR 300 MG CAP (OMNICEF) PO SCH (08:10)
[2023-08-13] MEDS: VITAMIN D 1,000 INTERNATIONAL UNITS TABLET PO SCH (08:10)
[2023-08-13] MEDS: PANTOPRAZOLE 40MG TAB (PROTONIX) PO SCH (08:10)
[2023-08-13] MEDS: ENOXAPARIN 40MG/0.4ML SYRINGE (J1650 PER 10MG) SC SCH (08:12)
[2023-08-13] MEDS ORDERED: PROBCAP14 PO (09:09)
[2023-08-13] MEDS ORDERED: METR-265 PO (09:09)
[2023-08-13] MEDS ORDERED: CEFD300CAP PO (09:09)
== END 2023-08-13 11:39 | disposition home or self-care (01) | DRG 871 ==
LOC: M ED 12:57 → M ED INP 16:26 → ENRESERV 16:40 → M MSPAV 17:34
PROVIDERS: ADMIT Internal Medicine; ATTEND Internal Medicine
DX: A41.9 Sepsis, unspecified organism (principal); K65.1 Peritoneal abscess; K57.20 Diverticulitis of large intestine with perforation and abscess without bleeding; I10 Essential (primary) hypertension; F32.A Depression, unspecified; M81.0 Age-related osteoporosis without current pathological fracture; K21.9 Gastro-esophageal reflux disease without esophagitis; E78.5 Hyperlipidemia, unspecified; G47.33 Obstructive sleep apnea (adult) (pediatric); M19.90 Unspecified osteoarthritis, unspecified site; E83.110 Hereditary hemochromatosis; E07.9 Disorder of thyroid, unspecified; F41.0 Panic disorder [episodic paroxysmal anxiety]; Z96.653 Presence of artificial knee joint, bilateral; Z20.822 Contact with and (suspected) exposure to COVID-19; Z79.899 Other long term (current) drug therapy; Z88.1 Allergy status to other antibiotic agents

== ENCOUNTER → 2023-10-27 | Day surgery (SDC) | payer MEDICARE, BC, OTHER ==
[~2023-10-27] VITALS: Ht 157.5 cm; Wt 86.3 kg
[~2023-10-27] MED LIST changes: +ACET650T61 PO; +CEFD300CAP PO; +CIPR500T39 PO; +LIDOCAINE 2% 100MG/5ML SDV (FOR ANES.) As Ordered ONE; +METR-265 PO; +MULT-90 PO; +NS 1,000 ML IV ONE; +ONE-TAB PO; +PROBCAP14 PO; +[UNRECOGNIZED DRUG - CODE] PO; +[UNRECOGNIZED DRUG - OTHER] PO; +propofoL 200 MG/20 ML VIAL As Ordered ONE
[2023-10-27 13:58] VITALS: TEMP 97
[2023-10-27 14:26] VITALS: BP 165/77; O2SAT 96
== END | disposition home or self-care (01) ==
LOC: M OPP 12:17
PROVIDERS: ATTEND Surgery
DX: Z12.11 Encounter for screening for malignant neoplasm of colon (principal); K57.30 Diverticulosis of large intestine without perforation or abscess without bleeding; K63.89 Other specified diseases of intestine; Z80.0 Family history of malignant neoplasm of digestive organs; I10 Essential (primary) hypertension; E78.00 Pure hypercholesterolemia, unspecified; Z90.49 Acquired absence of other specified parts of digestive tract; G47.30 Sleep apnea, unspecified; Z79.899 Other long term (current) drug therapy; Z85.828 Personal history of other malignant neoplasm of skin; Z88.8 Allergy status to other drugs, medicaments and biological substances

== ENCOUNTER → 2024-07-17 | Outpatient (CLI) | payer MEDICARE, BC, OTHER ==
[~2024-07-17] MED LIST changes: -BIOT50004 PO; +BIOT5CAP8 PO; -LIDOCAINE 2% 100MG/5ML SDV (FOR ANES.) As Ordered ONE; -NS 1,000 ML IV ONE; +SEMA0.252 SQ; +SHARPOW3 PO; +[UNRECOGNIZED DRUG - CODE] PO; -propofoL 200 MG/20 ML VIAL As Ordered ONE
== END ==
LOC: M WHC 07:15
PROVIDERS: ATTEND Nurse Practitioner Family
DX: Z12.31 Encounter for screening mammogram for malignant neoplasm of breast (principal)

== ENCOUNTER → 2024-11-14 | Outpatient (CLI) | payer MEDICARE, BC, OTHER ==
[~2024-11-14] MED LIST changes: +GABA-1172 PO; -GABA-282 PO; +IBAN150T10 PO; -IBAN150T6 PO; +ISOVUE-370 76% 100ML VIAL As Ordered ONE; +MIRTAZAPINE; -MULT200T7 PO; +MULT200T9 PO
== END ==
LOC: M RAD 11:30
PROVIDERS: ATTEND Nurse Practitioner Family
DX: K57.90 Diverticulosis of intestine, part unspecified, without perforation or abscess without bleeding (principal)
CPT/HCPCS: 74177; Q9967

== ENCOUNTER → 2024-11-18 | Outpatient (CLI) | payer MEDICARE, BC, OTHER ==
[~2024-11-18] MED LIST changes: -ISOVUE-370 76% 100ML VIAL As Ordered ONE
[2024-11-18 14:04] LABS: APPEARANCE, URINE HAZY (CLEAR); BACTERIA, URINE AUTO NEGATIVE (NEGATIVE); BILIRUBIN, URINE AUTO NEGATIVE (NEGATIVE); BLOOD, URINE BLOOD NEGATIVE (NEGATIVE); COLOR, URINE AMBER (YELLOW); GLUCOSE, URINE (UA) AUTO NEGATIVE (NEGATIVE); KETONE, URINE AUTO TRACE mg/dL (NEGATIVE); LEUKOCYTE ESTERASE, URINE AUTO NEGATIVE (NEGATIVE); MUCUS, URINE SMALL (NEGATIVE); NITRITE, URINE AUTO NEGATIVE (NEGATIVE); PROTEIN, URINE AUTO NEGATIVE (NEGATIVE); RBC, URINE AUTO 1 /HPF (0-3); SPECIFIC GRAVITY URINE AUTO 1.027 (1.002-1.035); SQUAMOUS EPITHELIAL CELL UR AU 1 /HPF (0-6); UROBILINOGEN, URINE AUTO 0.2 mg/dL (0.0-2.0); WBC, URINE AUTO 0 /HPF (0-3)
[2024-11-18 14:06] LABS: BASO % 0.6 % (0.0-1.0); EOS # 0.2 10^3/uL (0.0-0.5); HEMATOCRIT 39.2 % (36.0-47.0); HEMOGLOBIN 13.5 g/dl (12.0-15.5); LYMPH # 2.3 10^3/uL (1.5-5.0); LYMPH % 34.4 % (24.0-44.0); MEAN CORPUSCULAR HEMOGLOBIN 32.9 pg (27.0-33.0); MEAN CORPUSCULAR HGB CONC 34.4 g/dl (32.0-36.5); MEAN CORPUSCULAR VOLUME 95.6 fl (80.0-96.0); MONO # 0.6 10^3/uL (0.0-0.8); MONO % 8.3 % (2.0-8.0); NEUTROPHILS # 3.6 10^3/uL (1.5-8.5); NEUTROPHILS % 53.1 % (36.0-66.0); PLATELET COUNT, AUTOMATED 238 10^3/uL (150-450); WHITE BLOOD COUNT 6.7 10^3/uL (4.0-10.0)
[2024-11-18 14:40] LABS: LIPASE 51 U/L (12-53)
[2024-11-18 14:42] LABS: ALBUMIN 3.8 G/DL (3.2-5.2); ALKALINE PHOSPHATASE 98 U/L (35-104); ALT/SGPT 51 U/L (7.0-40); AST/SGOT 36 U/L (<34); BILIRUBIN,TOTAL 0.5 MG/DL (0.3-1.2); BLOOD UREA NITROGEN 22 MG/DL (9-23); CALCIUM LEVEL 9.7 MG/DL (8.3-10.6); CARBON DIOXIDE LEVEL 30 MMOL/L (20-31); CHLORIDE LEVEL 106 MMOL/L (98-107); GLOMERULAR FILTRATION RATE > 60.0 (>39); GLUCOSE, FASTING 83 MG/DL (74-106); IRON (FE) 132 UG/DL (50-170); PERCENT SATURATION 53.2 % (13.2-45.0); POTASSIUM SERUM 4.1 MMOL/L (3.5-5.1); SODIUM LEVEL 143 MMOL/L (136-145); TOTAL IRON BINDING CAPACITY 248 UG/DL (250-425); TOTAL PROTEIN 6.6 G/DL (5.7-8.2)
[2024-11-18 14:43] LABS: FREE T4 1.07 NG/DL (0.89-1.76); THYROID STIMULATING HORMONE 1.199 uIU/ML (0.55-4.78)
[2024-11-18 14:44] LABS: FOLATE > 24.0 NG/ML (>5.4); TOTAL 25(OH) VITAMIN D 80.9 NG/ML (20.0-100.0); VITAMIN B12 LEVEL 699 PG/ML (211-911)
[2024-11-22 17:50] LABS: LYME TOTAL ANTIBODY CIA <= 0.90 Index (<=0.90)
== END ==
LOC: M LAB 13:34
PROVIDERS: ATTEND Nurse Practitioner Family
DX: R10.32 Left lower quadrant pain (principal); R53.83 Other fatigue; Z79.899 Other long term (current) drug therapy; E83.110 Hereditary hemochromatosis

== ENCOUNTER → 2025-02-14 | Outpatient (CLI) | payer MEDICARE, BC, OTHER ==
[2025-02-14 09:16] LABS: APPEARANCE, URINE HAZY (CLEAR); BACTERIA, URINE AUTO NEGATIVE (NEGATIVE); BILIRUBIN, URINE AUTO NEGATIVE (NEGATIVE); BLOOD, URINE BLOOD NEGATIVE (NEGATIVE); COLOR, URINE YELLOW (YELLOW); GLUCOSE, URINE (UA) AUTO NEGATIVE (NEGATIVE); KETONE, URINE AUTO NEGATIVE (NEGATIVE); LEUKOCYTE ESTERASE, URINE AUTO 3+ (NEGATIVE); NITRITE, URINE AUTO NEGATIVE (NEGATIVE); PROTEIN, URINE AUTO NEGATIVE (NEGATIVE); RBC, URINE AUTO 9 /HPF (0-3); SPECIFIC GRAVITY URINE AUTO 1.017 (1.002-1.035); SQUAMOUS EPITHELIAL CELL UR AU 8 /HPF (0-6); UROBILINOGEN, URINE AUTO 0.2 mg/dL (0.0-2.0); WBC, URINE AUTO 86 /HPF (0-3)
[2025-02-14 09:18] LABS: BASO % 0.5 % (0.0-1.0); EOS # 0.3 10^3/uL (0.0-0.5); EOS % 4.8 % (0.0-3.0); HEMATOCRIT 40.9 % (36.0-47.0); LYMPH % 36.6 % (24.0-44.0); MEAN CORPUSCULAR HEMOGLOBIN 32.6 pg (27.0-33.0); MEAN CORPUSCULAR HGB CONC 34.2 g/dl (32.0-36.5); MEAN CORPUSCULAR VOLUME 95.1 fl (80.0-96.0); MONO # 0.5 10^3/uL (0.0-0.8); MONO % 9.5 % (2.0-8.0); NEUTROPHILS # 2.7 10^3/uL (1.5-8.5); NEUTROPHILS % 48.1 % (36.0-66.0); PLATELET COUNT, AUTOMATED 219 10^3/uL (150-450); WHITE BLOOD COUNT 5.6 10^3/uL (4.0-10.0)
[2025-02-14 09:41] LABS: CALCIUM LEVEL 9.2 MG/DL (8.3-10.6); CREATININE FOR GFR 0.98 MG/DL (0.55-1.30); GLOMERULAR FILTRATION RATE 59.1 (>39)
== END ==
LOC: M LAB 08:40
PROVIDERS: ATTEND Nurse Practitioner Family
DX: R30.0 Dysuria (principal)

== ENCOUNTER → 2025-03-27 | Outpatient (CLI) | payer MEDICARE, BC, OTHER ==
[~2025-03-27] MED LIST changes: +BUPR150T15 PO; -BUPR1TAB53 PO
== END ==
LOC: M PLAIMG 08:22
PROVIDERS: ATTEND Nurse Practitioner Family
DX: R22.41 Localized swelling, mass and lump, right lower limb (principal)

== ENCOUNTER → 2025-07-19 | Outpatient (CLI) | payer MEDICARE, BC, OTHER ==
[~2025-07-19] MED LIST changes: +AMIT10TA11 PO; -AMIT10TA7 PO; +DIALTAB PO
== END ==
LOC: M WHC 13:21
PROVIDERS: ATTEND Nurse Practitioner Family
DX: Z12.31 Encounter for screening mammogram for malignant neoplasm of breast (principal); Z13.820 Encounter for screening for osteoporosis; R92.323 Mammographic fibroglandular density, bilateral breasts; M85.851 Other specified disorders of bone density and structure, right thigh; M85.852 Other specified disorders of bone density and structure, left thigh

== ENCOUNTER → 2025-11-13 | Outpatient (REF) | payer MEDICARE, BC, OTHER ==
[2025-11-13 17:58] LABS: APPEARANCE, URINE CLEAR (CLEAR); BACTERIA, URINE AUTO NEGATIVE (NEGATIVE); BILIRUBIN, URINE AUTO NEGATIVE (NEGATIVE); BLOOD, URINE BLOOD NEGATIVE (NEGATIVE); GLUCOSE, URINE (UA) AUTO NEGATIVE (NEGATIVE); KETONE, URINE AUTO NEGATIVE (NEGATIVE); LEUKOCYTE ESTERASE, URINE AUTO TRACE (NEGATIVE); NITRITE, URINE AUTO NEGATIVE (NEGATIVE); PROTEIN, URINE AUTO NEGATIVE (NEGATIVE); RBC, URINE AUTO 0 /HPF (0-3); SPECIFIC GRAVITY URINE AUTO 1.006 (1.002-1.035); SQUAMOUS EPITHELIAL CELL UR AU 0 /HPF (0-6); UROBILINOGEN, URINE AUTO 0.2 mg/dL (0.0-2.0); WBC, URINE AUTO 2 /HPF (0-3)
== END ==
LOC: M LAB REF 17:07
PROVIDERS: ATTEND Nurse Practitioner Family
DX: Z01.818 Encounter for other preprocedural examination (principal); Z79.899 Other long term (current) drug therapy